=== PATIENT | female | born 1945 ===

== ENCOUNTER 2017-08-07 09:48 | Outpatient (CLI) | payer OTHER ==
[~2017-08-07 09:48] MED LIST: ACTIGALL300 MG PO; ATENOLOL25 MG PO; AVAPRO300 MG; CARAFATE SU1 G/10 ML PO; CARDIZEM CD240 MG; CYTOMEL5 MCG PO; GLUCOTROL10 MG; GLUCOTROL10 MG PO; LEVOXYL25 MCG PO; LEVOXYL88 MCG; LEVSIN/SL0.125 MG PO; LEVSIN/SL0.125 MG SL; LEVSIN0.125 MG; LISINOPRIL-HCTZ1 T13 PO; PREVACID30 MG; PROTONIX40 MG PO; ZANTAC300 MG PO
== END 2017-08-07 09:51 | disposition home or self-care (01) ==
LOC: LAB 09:48
DX: E11.65 Type 2 diabetes mellitus with hyperglycemia (principal)

== ENCOUNTER 2017-12-16 10:17 | Outpatient (CLI) | payer OTHER | END 2017-12-16 10:20 | disposition home or self-care (01) | LOC: LAB 10:17 | DX: E03.8 Other specified hypothyroidism (principal); R19.09 Other intra-abdominal and pelvic swelling, mass and lump; R97.8 Other abnormal tumor markers; D64.89 Other specified anemias; R73.09 Other abnormal glucose; E87.0 Hyperosmolality and hypernatremia; D68.8 Other specified coagulation defects; R77.2 Abnormality of alphafetoprotein; C22.1 Intrahepatic bile duct carcinoma; C50.311 Malignant neoplasm of lower-inner quadrant of right female breast; I10 Essential (primary) hypertension; E11.9 Type 2 diabetes mellitus without complications; E11.319 Type 2 diabetes mellitus with unspecified diabetic retinopathy without macular edema; K74.60 Unspecified cirrhosis of liver; R97.0 Elevated carcinoembryonic antigen [CEA]; D50.8 Other iron deficiency anemias; D51.8 Other vitamin B12 deficiency anemias; E55.9 Vitamin D deficiency, unspecified; K90.89 Other intestinal malabsorption ==

== ENCOUNTER 2018-01-19 09:00 | Emergency (ER) | payer OTHER ==
[~2018-01-19] VITALS: Ht 165.1 cm; Wt 76.2 kg
[2018-01-19] MEDS ORDERED: LASIX20 MG (09:20)
[2018-01-19] MEDS ORDERED: ALDACTONE50 MG (09:21)
[2018-01-19] MEDS ORDERED: DOLOGEN CAPLET1 EACH (09:21)
== END 2018-01-19 18:09 | disposition home or self-care (01) ==
LOC: ER 09:00
DX: S00.83XA Contusion of other part of head, initial encounter (principal); S79.812A Other specified injuries of left hip, initial encounter; S79.811A Other specified injuries of right hip, initial encounter; R42 Dizziness and giddiness; N39.0 Urinary tract infection, site not specified; W18.09XA Striking against other object with subsequent fall, initial encounter; Y93.89 Activity, other specified; Y92.018 Other place in single-family (private) house as the place of occurrence of the external cause; Y99.8 Other external cause status